=== PATIENT | female | born 1955 | race Caucasian/White ===

== ENCOUNTER 2017-04-10 08:25 | Outpatient (CLI) | payer OTHER | END 2017-04-10 08:26 | disposition home or self-care (01) | DX: F41.1 Generalized anxiety disorder (principal) ==

== ENCOUNTER 2021-04-12 11:16 | Outpatient (CLI) | payer OTHER ==
--- NOTE | 2021-04-15 14:50 | Mammography Report ---
BILATERAL DIGITAL SCREENING MAMMOGRAM 3D/2D WITH AUGMENTATION: 04/12/2021 CLINICAL: Routine screening. Comparison is made to exams dated: 07/29/2019 mammogram - [facility], 11/03/2017 mammogram, 015 mammogram, 06/08/2013 mammogram - [facility], and 01/30/2011 mammogram - [facility]. There are scattered fibroglandular elements in both breasts. Bilateral breast implants are intact. No significant masses, calcifications, or other findings are seen in either breast. There has been no significant interval change. IMPRESSION: NEGATIVE There is no mammographic evidence of malignancy. A 1 year screening mammogram is recommended. This exam was interpreted at Station ID: [id number]. NOTE: For mammograms, a report in lay terms will be sent to the patient. Approximately 15% of breast malignancies will not be visualized mammographically. In the management of a palpable breast mass, a negative mammogram must not discourage biopsy of a clinically suspicious lesion. Electronically Signed By: Hussein Graf acr/penrad:04/12/2021 12:44:31 ACR BI-RADS Category 1: Negative 3341F PARENCHYMAL PATTERN: (A) - The breast(s) demonstrate(s) scattered fibroglandular densities. BI-RADS CATEGORY: (1) - 1 RECOMMENDATION: (ANNUAL) - Recommend routine annual screening mammography. [id number] 1 year screening LATERALITY: (B)
== END 2021-04-12 11:17 | disposition home or self-care (01) ==
LOC: DI 11:16
PROVIDERS: ATTEND Physician Assistant
DX: Z12.31 Encounter for screening mammogram for malignant neoplasm of breast (principal); Z98.82 Breast implant status

== ENCOUNTER 2023-09-22 12:30 | Outpatient (CLI) | payer MEDICARE, OTHER ==
--- NOTE | 2023-09-23 11:06 | Mammography Report ---
BILATERAL DIGITAL SCREENING MAMMOGRAM 3D/2D WITH AUGMENTATION: 09/22/2023 CLINICAL: Routine screening. Family history of breast cancer. Comparison is made to exams dated: 04/12/2021 mammogram - [facility], 07/29/2019 ultr asound, 07/29/2019 mammogram - [facility], 11/03/2017 mammogram, 11/29/2014 mammogram, and 06/08/2013 m ammogram - [facility]. There are scattered areas of fibroglandular density in both breasts (category b / 25%-50% glandular t issue). Bilateral breast implants are intact. No significant masses, calcifications, or other findings are seen in either breast. There has been no significant interval change. IMPRESSION: NEGATIVE There is no mammographic evidence of malignancy. A 1 year screening mammogram is recommended. Based on the Tyrer Cuzick model (a risk assessment model) the patients lifetime risk is 10.0% and he r 10 year risk is 5.3%. According to the ACR, ACS, and NCCN guidelines, an annual breast MRI exam donavon ng with mammogram is recommended if the patients lifetime risk is 20% or greater. This exam was interpreted at Station ID: [id number]. NOTE: For mammograms, a report in lay terms will be sent to the patient. Approximately 15% of breast malignancies will not be visualized mammographically. In the management of a palpable breast mass, a negative mammogram must not discourage biopsy of a clinically suspicious lesion. Electronically Signed By: Milly hobson/jannette:09/22/2023 15:34:57 letter sent: No_Letter ACR BI-RADS Category 1: Negative 3341F PARENCHYMAL PATTERN: (A) - The breast(s) demonstrate(s) scattered fibroglandular densities. BI-RADS CATEGORY: (1) - 1 Mammogram [id number] 1 year screening LATERALITY: (B)
== END 2023-09-22 12:31 | disposition home or self-care (01) ==
LOC: DI.N 12:30
PROVIDERS: ATTEND Nurse Practitioner Family
DX: Z12.31 Encounter for screening mammogram for malignant neoplasm of breast (principal); R92.323 Mammographic fibroglandular density, bilateral breasts; Z80.3 Family history of malignant neoplasm of breast